=== PATIENT | male | born 1990 | race Caucasian/White ===

== ENCOUNTER 2017-12-06 21:11 | Emergency (ER) | payer OTHER ==
[~2017-12-06] VITALS: Ht 154.9 cm; Wt 64.9 kg
[2017-12-06 21:17] VITALS: BP 141/83; Ht 154.9 cm; Wt 64.9 kg
== END 2017-12-06 22:21 | disposition home or self-care (01) ==
LOC: ED 21:11
DX: H10.9 Unspecified conjunctivitis (principal)